=== PATIENT | male | born 2000 | race Hispanic/Latino ===

== ENCOUNTER 2018-12-22 06:38 | Day surgery (SDC) | payer BC ==
[2018-12-21 10:44] VITALS: BMI 18.0
[2018-12-22] MEDS ORDERED: Midazolam HCl 2 mg/2 ml Vial ONE (09:20)
[2018-12-22] MEDS ORDERED: Famotidine/PF 20 mg/2ml Vial ONE (10:45)
[2018-12-22] MEDS ORDERED: Fentanyl 100 MCG/2 ML VIAL ONE ×2 (10:45→11:48)
[2018-12-22] MEDS ORDERED: Meperidine HCl/PF 25 MG/ML VIAL ONE (10:45)
[2018-12-22] MEDS ORDERED: Hydrocodone-Acetamin 15 ML UDCUP ONE (12:24)
[2018-12-22] MEDS ORDERED: Dexamethasone 20 MG/5 ML VIAL ONE (15:08)
[2018-12-22] MEDS ORDERED: Lidocaine 1% PF 5 ML VIAL ONE (15:08)
[2018-12-22] MEDS ORDERED: PROPOFOL 200 MG/20 ML VIAL ONE (15:08)
[2018-12-22] MEDS ORDERED: Succinylcholine Chloride 20 MG/ML 10 ml SYRINGE FS ONE (15:08)
[2018-12-22] MEDS ORDERED: Ondansetron PF 4 MG/2 ML Vial ONE (15:08)
--- NOTE | 2018-12-23 09:47 | OP ---
DATE OF PROCEDURE: 12/22/2018 PROCEDURE PERFORMED: Tonsillectomy. PREOPERATIVE DIAGNOSIS: Recurrent tonsillitis. POSTOPERATIVE DIAGNOSIS: Recurrent tonsillitis and tonsillar hypertrophy. PERMIT: Procedures, benefits and risks including those of bleeding, infection, injury to anesthesia, allergic reaction, and recurrent oropharyngeal bleeding causing return to operating room and cautery were discussed with the patient and family, who expressed understanding of the information and consent form was signed and witnessed. The paper copy of the consent form is not available for review in the paper chart. INDICATIONS: This is a young male patient presenting to the clinic with acute tonsillitis, requiring antibiotic as well as chronic tonsillitis and pain is well controlled. DESCRIPTION OF OPERATION: The patient was brought to the operating room, laid supine on the operating room table. Anesthesia was induced. A complete time-out was performed before commencement of the surgical procedure. The table was turned 90 degrees. The patient was suspended using a Marilee-Vipul mouth gag. A red rubber catheter was used to place in the nares and used to examine the nasopharynx. Attention was turned to the right tonsil. The tonsil was removed first by incising the anterior pillar and then dissecting from its inferior fossa of bridging vessels and fibers were cauterized with the Bovie on a setting of 15, so was removed anatomically in its entirety. Hemostasis was achieved using suction cautery. Attention was turned to the left tonsil. Left tonsil was removed in the identical manner. The nasopharynx was irrigated and suctioned. The stomach contents were suctioned. The patient was turned back to anesthesia for emergence. Job ID: [id number]
== END 2018-12-22 12:45 | disposition home or self-care (01) ==
LOC: SDC 06:38
PROVIDERS: ATTEND Student in an Organized Health Care Education/Training Program
PROC: 0CTPXZZ Resection of Tonsils, External Approach (ICD-10-PCS; principal; 2018-12-22)
DX: J03.91 Acute recurrent tonsillitis, unspecified (principal); J35.01 Chronic tonsillitis
CPT/HCPCS: 88304; J2175; J2250; J3010; S0028